=== PATIENT | male | born 1940 | race Caucasian/White ===

== ENCOUNTER → 2019-09-03 09:05 | Outpatient (CLI) | payer MEDICARE, SELFPAY ==
--- NOTE | 2019-09-03 | DI.MRI.S_ITS ---
PROCEDURE: MR STROKE Pre- and post-contrast brain MRI, non-contrast brain MR angiogram, pre- and postcontrast neck MR angiogram INDICATIONS: MEMORY LOSS TECHNIQUE: Brain: Noncontrast axial T1 spin echo, axial T2 fast spin echo, sagittal and axial FLAIR, coronal T2 fast spin echo, axial gradient echo, axial diffusion and ADC through the brain. After the administration of contrast, axial 3D VIBE of the cranial vasculature and brain. Brain MRA: Non-contrast 3-D time of flight MR angiogram, with multiple yenyuea-vvmtkekuo-igqzpmmjju (MIP) reformats performed. Neck MRA: Axial and sagittal TruFISP through the neck. Coronal dynamic MR angiogram during administration of contrast in the arterial and venous phases, with 3-dimenstional ytqcrgj-eoaaahqjk-jgzdqywara (MIP) reformats constructed from subtraction images. COMPARISON: None. FINDINGS: Image quality: Excellent. BRAIN: CSF spaces: Ventricles are normal in size and shape. Basal cisterns are patent. No extra-axial fluid collections. Brain: No intracranial bleeds or mass effects. Snell-white matter interface is normal. Diffusion weighted images show no acute ischemic insults. Brainstem appears normal. Normal intravascular flow voids are present. No abnormal intracranial enhancement. Skull and face: Calvarial marrow signal is normal. Orbits appear normal. Sinuses: Sinuses and mastoids are clear. BRAIN MR ANGIOGRAM: Anterior circulation: Intracranial internal carotid arteries are normal in size and enhancement. The flow within the paired anterior cerebral arteries is normal and symmetric. The flow within the middle cerebral arteries is normal and symmetric. No stenoses, occlusions, or aneurysms. Posterior circulation: Dominant left vertebral artery. Patent basilar artery. Patent, symmetric appearance of both posterior cerebral arteries. Incidentally noted origin of the right [employer]. NECK MR ANGIOGRAM: Carotids: Great vessels demonstrate a conventional anatomy as they arise from the aortic arch. The origins of the common carotid arteries appear patent. The calibers and courses of both common carotid arteries are normal. Less than 50% focal stenosis involving the proximal right internal carotid artery Posterior circulation: The origins of the vertebral arteries appear patent. Dominant left vertebral artery. Mildly atretic appearance of the right vertebral artery. origin of the right [employer] G[employer] incidentally noted. Miscellaneous: Subclavian arteries appear patent. Pre-contrast images through the neck show no soft tissue abnormalities. IMPRESSION: BRAIN MRI: No evidence of acute ischemia. No acute intracranial signal change. No abnormal enhancement BRAIN MR ANGIOGRAM: No focal stenosis or occlusion NECK MR ANGIOGRAM: Less than 50% focal stenosis involving the proximal right ICA. Dominant left vertebral artery Dictated by: Nolberto Crow M.D. on 09/03/2019 at 10:59 Approved by: Nolberto Crow M.D. on 09/03/2019 at 11:10
== END ==
PROVIDERS: PCP Family Medicine; Visit Provider Family Medicine
DX: R41.3 Other amnesia (principal); I65.21 Occlusion and stenosis of right carotid artery
CPT/HCPCS: 70548; 70553; A9579

== ENCOUNTER → 2021-12-27 12:04 | Outpatient (CLI) | payer MEDICARE, SELFPAY ==
--- NOTE | 2021-12-27 | DI.MRI.S_ITS ---
PROCEDURE: MR HEAD/BRAIN WO CON INDICATIONS: Other amnesia TECHNIQUE: Noncontrast axial T1 spin echo, axial T2 fast spin echo, sagittal and axial FLAIR, coronal T2 fast spin echo, axial gradient echo, axial diffusion and ADC through the brain. COMPARISON: [facility], MR, MR STROKE, 09/03/2019, 9:45. FINDINGS: Image quality: Excellent. CSF Spaces: Basal cisterns are patent. No extra-axial fluid collections. Ventricles are normal in size and shape. Brain: No intracranial masses or hemorrhage. Snell/white matter interface is normal. Brainstem appears normal. Diffusion-weighted images demonstrate no acute infarcts. Normal intravascular flow voids are present. Moderate atrophy and mild white matter chronic ischemic change noted. 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 Skull and face: Calvarium has normal marrow signal. Orbits appear normal. Bilateral intraocular lens replacements noted. Sinuses: Sinuses and mastoids are clear. IMPRESSION: Atrophy and chronic ischemic change acute infarct, hemorrhage or mass lesion. 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 Approved by: Vitro Kim M.D. on 12/27/2021 at 12:19
== END ==
PROVIDERS: PCP Family Medicine; Referring Provider Family Medicine; Visit Provider Family Medicine
DX: R41.3 Other amnesia (principal)
CPT/HCPCS: 70551